=== PATIENT | female | born 1985 | race African-American/Black ===

== ENCOUNTER 2023-01-01 13:06 | Emergency (ER) | payer OTHER, MEDICAID ==
[~2023-01-01] VITALS: Ht 172.7 cm; Wt 149.0 kg
[2023-01-01] MEDS ORDERED: KETOROLAC 30MG/ML VIAL IV STA (13:34)
[2023-01-01] MEDS ORDERED: ONDANSETRON HCL 4MG/2ML INJ IV STA (13:34)
[2023-01-01] MEDS ORDERED: MORPHINE SULFATE 4 MG/ML CPJ (NOT FOR IM USE) IV STA (13:34)
[2023-01-01] MEDS ORDERED: SODIUM CHLORIDE 0.9% 1,000 ML IV ONE (13:45)
[2023-01-01 14:02] LABS: BASOPHILS % 0.6 % (0.0-2.0); EOSINOPHILS % 1.2 % (0.0-5.0); HEMATOCRIT. 35.8 % (36.0-48.0); LYMPHOCYTES % 19.1 % (20.0-50.0); MEAN CORPUSCULAR HEMOGLOBIN 29.4 pg (28.0-32.0); MEAN CORPUSCULAR VOLUME 87.4 fL (81.0-99.0); MEAN PLATELET VOLUME 9.2 fl (7.4-10.4); MONOCYTES % 7.4 % (2.0-8.0); NEUTROPHILS % 71.7 % (40.0-76.0); PLATELET 277 x1000/uL (130-400); RED CELL DISTRIBUTION WIDTH 14.9 % (11.6-14.6)
[2023-01-01 14:17] LABS: CHLORIDE 112 mEq/L (98-107)
[2023-01-01 14:19] LABS: HCG SCREEN NEGATIVE
[2023-01-01] MEDS ORDERED: DEXAMETHASONE 10 MG/ML VIAL IV ONE (16:15)
[2023-01-01] MEDS ORDERED: HYDROCHLOROTHIAZIDE 25MG TABLET PO ONE (16:30)
[2023-01-01] MEDS ORDERED: AMLODIPINE 5MG TABLET PO ONE (16:30)
[2023-01-01] MEDS ORDERED: LABETALOL 5MG/ML SYR 20 MG/4 ML SYRINGE IV ONE (16:45)
[2023-01-01 17:08] LABS: CLARITY URINE CLEAR (CLEAR); COLOR URINE YELLOW (YELLOW); KETONES URINE NEGATIVE (NEGATIVE); LEUKOCYTE ESTERASE URINE NEGATIVE (NEGATIVE); NITRITE URINE POSITIVE (NEGATIVE); OCCULT BLOOD URINE NEGATIVE (NEGATIVE); PROTEIN URINE NEGATIVE (NEGATIVE); UROBILINOGEN URINE 0.2 E.U./dL (0.2-1.0)
[2023-01-01] MEDS ORDERED: LIDO700A15 TP (18:41)
[2023-01-01] MEDS ORDERED: METH-773 MT (18:41)
[2023-01-01] MEDS ORDERED: IBUP-2029 MT (18:41)
[2023-01-01 18:50] VITALS: BP 154/107
== END 2023-01-01 19:11 | disposition home or self-care (01) ==
LOC: ER 13:12
DX: M54.42 Lumbago with sciatica, left side (principal); M54.41 Lumbago with sciatica, right side; I16.0 Hypertensive urgency; I10 Essential (primary) hypertension; J45.909 Unspecified asthma, uncomplicated; Z20.822 Contact with and (suspected) exposure to COVID-19
CPT/HCPCS: 36415; 72131; 80053; 81003; 81025; 84703; 85025; 87426; 96361; 96374; 96375; 99285; C9803; J1100; J1885; J2270; J2405; J3490; J7030